=== PATIENT | male | born 1940 | race Caucasian/White ===

== ENCOUNTER → 2018-05-16 | Outpatient (CLI) | payer MEDICARE, OTHER ==
[~2018-05-16] MED LIST: OMNIPAQUE 350 MG/ML, 100ML BOTTLE ONE
[2018-05-16 12:26] LABS: CREATININE 1.56 mg/dL (0.7-1.3)
== END | disposition home or self-care (01) ==
LOC: RAD 11:15
PROVIDERS: ATTEND Internal Medicine
DX: R07.81 Pleurodynia (principal); I70.0 Atherosclerosis of aorta; I25.10 Atherosclerotic heart disease of native coronary artery without angina pectoris; J92.9 Pleural plaque without asbestos; I27.82 Chronic pulmonary embolism
CPT/HCPCS: 36415; 71275; 82565; Q9967

== ENCOUNTER 2018-10-14 11:14 | Emergency (ER) | payer MEDICARE, OTHER ==
[~2018-10-14] VITALS: Ht 182.9 cm; Wt 105.0 kg
--- NOTE | 2018-10-14 11:36 | NUR ---
LOW BACK AND RIGHT HIP PAIN RADIATING DOWN RIGHT LEG SINCE SATURDAY. ONLY POSITION OF COMFORT IS LYING FLAT
[2018-10-14] MEDS ORDERED: SODIUM CHLORIDE FLUSH 10ML SYR IVF ONE (12:00)
[2018-10-14] MEDS ORDERED: ONDANSETRON 2MG/ML, 2ML IVPush ONE (12:00)
[2018-10-14] MEDS ORDERED: ONDANSETRON 2MG/ML, 2ML ONE (12:09)
[2018-10-14] MEDS ORDERED: HYDROmorphone 1 MG/ML, 1ML VIAL ONE ×2 (12:10→14:27)
[2018-10-14] MEDS: HYDROmorphone 2 MG/ML, 1ML IVPush PRN ×2 (12:13→14:31)
--- NOTE | 2018-10-14 12:41 | NUR ---
PT STATES PAIN IMPROVED FROM 9/10 TO 6/10 AFTER MEDICATED FOR SAME
[2018-10-14 12:43] LABS: BASOPHILS # (AUTO) 0.05 x10^3/uL (0-0.1); BASOPHILS % (AUTO) 1 % (0-1); EOSINOPHILS # (AUTO) 0.13 x10^3/uL (0-0.4); EOSINOPHILS % (AUTO) 2 % (1-7); LYMPHOCYTES # (AUTO) 2.09 x10^3/uL (1-3.4); LYMPHOCYTES % (AUTO) 25 % (22-44); MD NO; MEAN CORPUSCULAR HEMOGLOBIN 31.8 pg (27.5-34.5); MEAN CORPUSCULAR HGB CONC 32.9 g/dL (33.2-36.2); MEAN CORPUSCULAR VOLUME 96.8 fL (81-97); MEAN PLATELET VOLUME 8.9 fL (7.4-10.4); MONOCYTES # (AUTO) 0.88 x10^3/uL (0.2-0.8); MONOCYTES % (AUTO) 10 % (2-9); NEUTROPHILS # (AUTO) 5.27 x10^3/uL (1.8-6.8); NEUTROPHILS % (AUTO) 63 % (42-75); PLATELET COUNT 242 x10^3/uL (130-400); RED BLOOD COUNT 4.65 x10^6/uL (4.38-5.82); RED CELL DISTRIBUTION WIDTH 14.4 % (9.4-14.8)
[2018-10-14 12:49] LABS: ALBUMIN 3.4 g/dL (3.4-5.0); ANION GAP 8 mmol/L (5-15); CALCIUM 9.2 mg/dL (8.5-10.1); CHLORIDE 105 mmol/L (98-107); CREATININE 1.29 mg/dL (0.7-1.3)
--- NOTE | 2018-10-14 13:40 | NUR ---
TO CT BY MYRANDA
[2018-10-14 14:59] VITALS: BP 112/56
--- NOTE | 2018-10-14 15:00 | NUR ---
PAIN 4/10 AFTER 2ND DOSE OF DILAUDID. PT STATES HE FEELS MUCH BETTER. PT ABLE TO WALK TO WHEELCHAIR WITHOUT ASSISTANCE. TO DISCHARGE WINDOW VIA WHEELCHAIR
== END 2018-10-14 15:02 | disposition home or self-care (01) ==
LOC: ED 13:46
DX: M54.41 Lumbago with sciatica, right side (principal); E78.00 Pure hypercholesterolemia, unspecified; G89.29 Other chronic pain
CPT/HCPCS: 36415; 72132; 80048; 82040; 85025; 96374; 96375; 96376; 99284; J1170; J2405

== ENCOUNTER 2018-12-04 10:44 | Outpatient (CLI) | payer MEDICARE, OTHER | END 2018-12-04 23:59 | disposition home or self-care (01) | LOC: CFH 10:44 | PROVIDERS: ATTEND Internal Medicine | DX: J92.9 Pleural plaque without asbestos (principal); J84.10 Pulmonary fibrosis, unspecified; I70.0 Atherosclerosis of aorta | CPT/HCPCS: 71250 ==